=== PATIENT | male | born 1965 | race Caucasian/White ===

== ENCOUNTER 2022-01-27 10:56 | Observation (INO) | payer BC ==
[~2022-01-27] VITALS: Ht 180.3 cm; Wt 115.9 kg
[2022-01-27] VITALS (16 sets, daily range): BP systolic 98–130; BP diastolic 58–85; PULSE 81–95; TEMP 97.3–98.4
[2022-01-27] MEDS ORDERED: GLUCOPHAGE1000 MG PO (11:09)
[2022-01-27] MEDS ORDERED: ASPIRIN 32325 MG/TAB PO (11:10)
[2022-01-27] MEDS ORDERED: HYZAAR 25 MG-101 TAB PO (11:10)
[2022-01-27 11:22] LABS: BASO # 0.1 K/mm3 (0.0-0.2); BASO % 0.5 % (0.0-2.0); EOS # 0.1 K/mm3 (0.0-0.7); EOS % 0.8 % (0.0-4.0); GRAN # 9.9 K/mm3 (1.4-6.5); GRAN % 79.3 % (42.2-75.2); HEMATOCRIT 42.3 % (42.0-52.0); HEMOGLOBIN 14.5 g/dl (13.5-18.0); LYMPH # 1.5 K/mm3 (1.2-3.4); LYMPH % 11.8 % (20.0-51.0); MEAN CELL VOLUME 82 fl (80.0-100.0); MEAN CORPUSCULAR HEMOGLOBIN 28 pg (27-31); MEAN CORPUSCULAR HGB CONC 34 g/dl (33.0-37.0); MEAN PLATELET VOLUME 9.9 fl (7.4-10.4); MONO # 0.9 K/mm3 (0.1-0.6); MONO % 7.3 % (1.7-9.3); PLATELET COUNT 242 K/mm3 (130-400); RED BLOOD COUNT 5.14 M/mm3 (4.20-5.60); REDCELL DISTRIBUTION WIDTH-CV 12.3 % (11.5-14.5)
[2022-01-27 11:35] LABS: INR 1.1 (0.8-3.0); PROTHROMBIN TIME 12.6 SECONDS (9.7-12.8)
[2022-01-27 11:41] LABS: D-DIMER < 200.00 ng/mLDDu (200-230)
[2022-01-27 11:43] LABS: TROPONIN-I < 0.010 ng/mL (0.00-0.033)
[2022-01-27 11:45] LABS: ALANINE AMINOTRANSFERASE 37 U/L (0-55); ALBUMIN 4.3 gm/dL (3.5-5.0); ALKALINE PHOSPHATASE 50 U/L (40-150); ANION GAP 11 mmol/L (7-16); AST,SGOT 24 U/L (5-34); BILIRUBIN,TOTAL 0.5 mg/dL (0.2-1.2); BLOOD UREA NITROGEN 14 mg/dL (8-26); CALCIUM 9.6 mg/dL (8.4-10.2); CARBON DIOXIDE 25 mmol/L (22-29); CHLORIDE 101 mmol/L (98-107); CREATININE, serum 0.87 mg/dL (0.72-1.25); GLUCOSE 199 mg/dL (70-99); POTASSIUM 3.8 mmol/L (3.5-4.5); SODIUM 137 mmol/L (136-145); TOTAL PROTEIN 7.2 gm/dL (6.2-8.1)
--- NOTE | 2022-01-27 13:33 | NUR ---
See merge for all medication, assessment, intervention, and vital sign times.
[2022-01-27] MEDS ORDERED: GLUCOPHAGE500 MG/TAB PO (14:37)
[2022-01-27] MEDS ORDERED: GLUCOPHAGE500 MG/TAB ×2 (14:37→14:38)
[2022-01-27] MEDS ORDERED: ALBUTEROL0.83 MG/ML (14:39)
[2022-01-27] MEDS ORDERED: HYZAAR 25 MG-101 TAB (14:39)
[2022-01-27] MEDS ORDERED: GLUCOSE TEST ST1 DEV (14:39)
[2022-01-27] MEDS ORDERED: ADIPEX-P37.5 MG (14:40)
[2022-01-27] MEDS ORDERED: COZAAR 50MG50 MG/TAB (14:40)
[2022-01-27] MEDS ORDERED: VIAGRA50 M1 (14:40)
[2022-01-27] MEDS ORDERED: PROVENTIL0.09 MG/A1 (14:40)
[2022-01-28] VITALS: BP 120/68; PULSE 86; TEMP 98.1
[2022-01-28 03:26] VITALS: BP 123/63; PULSE 93; TEMP 98.5
[2022-01-28 04:00] VITALS: BP 123/63; PULSE 93; TEMP 98.5
[2022-01-28 06:38] LABS: BASO # 0.1 K/mm3 (0.0-0.2); BASO % 0.5 % (0.0-2.0); EOS # 0.2 K/mm3 (0.0-0.7); EOS % 1.6 % (0.0-4.0); GRAN # 7.4 K/mm3 (1.4-6.5); GRAN % 70.8 % (42.2-75.2); HEMATOCRIT 41.6 % (42.0-52.0); HEMOGLOBIN 13.5 g/dl (13.5-18.0); LYMPH # 1.8 K/mm3 (1.2-3.4); LYMPH % 17.3 % (20.0-51.0); MEAN CORPUSCULAR HEMOGLOBIN 28 pg (27-31); MEAN CORPUSCULAR HGB CONC 33 g/dl (33.0-37.0); MEAN PLATELET VOLUME 10.2 fl (7.4-10.4); MONO % 9.5 % (1.7-9.3); PLATELET COUNT 214 K/mm3 (130-400); REDCELL DISTRIBUTION WIDTH-CV 12.5 % (11.5-14.5)
[2022-01-28 06:48] LABS: MEAN CELL VOLUME 87 fl (80.0-100.0)
[2022-01-28 06:52] LABS: CALCIUM 9.1 mg/dL (8.4-10.2); CHOLESTEROL RISK RATIO 3.6; CREATININE, serum 0.78 mg/dL (0.72-1.25); POTASSIUM 4.5 mmol/L (3.5-4.5)
[2022-01-28 07:29] VITALS: BP 118/49; PULSE 93; TEMP 97.6
[2022-01-28] MEDS ORDERED: ASPIRIN E.C. 8181 MG PO (08:14)
[2022-01-28] MEDS ORDERED: PROTONIX 40MG T40 MG PO (08:15)
--- NOTE | 2022-01-28 09:48 | NUR ---
PATIENT ALERT AND ORIETNED, RESTING IN BED. AWAITIGN FOLLOW UP RECS SO [employer] CAN FINISH DISCHARGE PAPERWORK. PATIENT WITH NO NEEDS OR COPMLAINTS AT THIS TIME. WILL CONT TO MONITOR UNTIL DISCHARGE.
--- NOTE | 2022-01-28 10:37 | NUR ---
Initial visit; Patient and his (on the phone), thanked Social Work Lecturer for looking in on him and offering prayer and thanking them for doing the work they do as "[employer] will follow up while Caro is a patient.
--- NOTE | 2022-01-28 11:09 | NUR ---
PATIENTS TELEMTRY OFF, IV DISCONTINUED. DISCUSSED PATIENT EDUCATION AND DISCHARGE INSTRUCTIONS WITH THE PATIENT, ALL QUESTIONS ANSWERED.
--- NOTE | 2022-01-28 11:30 | NUR ---
PATIENT WALKED TO ER ENTRANCE BY PCT, WHERE HIS PICKED HIM UP. PATIENT LEFT IN STABLE CONITION.
== END 2022-01-28 11:30 | disposition home or self-care (01) ==
LOC: COL.ER 10:56 → MEDICAL 12:17
PROVIDERS: Nurse Practitioner; Physician Assistant; ADMIT Student in an Organized Health Care Education/Training Program
DX: R07.9 Chest pain, unspecified (principal); I10 Essential (primary) hypertension; E11.9 Type 2 diabetes mellitus without complications; F17.290 Nicotine dependence, other tobacco product, uncomplicated; I34.0 Nonrheumatic mitral (valve) insufficiency; Z79.82 Long term (current) use of aspirin; Z79.84 Long term (current) use of oral hypoglycemic drugs; Z79.899 Other long term (current) drug therapy
CPT/HCPCS: G0378; J1644; J1815; J2250; J3010; J7030; Q9967